=== PATIENT | female | born 2000 | race Caucasian/White ===

== ENCOUNTER 2025-11-05 00:16 | Emergency (ER) | payer OTHER ==
[~2025-11-05] VITALS: Ht 170.2 cm; Wt 49.9 kg
[2025-11-05 00:48] LABS: PLATELET COUNT (AUTO) 166 K/uL (179-408); RED BLOOD CELL COUNT(AUTO) 4.37 MIL/uL (3.63-4.92); RED CELL DISTRIBUTION WIDTH 13.4 % (12.3-17.7); WHITE BLOOD COUNT (AUTO) 6.5 K/uL (3.8-11.8)
[2025-11-05 00:52] LABS: CREATININE 0.9 mg/dL (0.6-1.3); UREA NITROGEN, BLOOD 9.0 mg/dL (7-18)
[2025-11-05 00:55] LABS: SODIUM SERUM 134.0 mmol/L (136-145)
[2025-11-05 00:57] LABS: ASPARTATE AMINOTRANSFERASE 160.0 U/L (15-37); ETHANOL < 3 MG/DL (0-10); TOTAL PROTEIN, SERUM 8.1 g/dL (6.4-8.2)
[2025-11-05] MEDS ORDERED: LEVE500T9 PO (01:21)
[2025-11-05 01:43] VITALS: BP 120/90
[2025-11-05 01:43] LABS: *AMPHETAMINE, URINE NEGATIVE (NEGATIVE); *BARBITURATE, URINE NEGATIVE (NEGATIVE); *BENZODIAZEPINE, URINE NEGATIVE (NEGATIVE); *CANNABINOID, URINE POSITIVE (NEGATIVE); *COCCAINE, URINE NEGATIVE (NEGATIVE); *OPIATE, URINE NEGATIVE (NEGATIVE); *PHENCYCLIDINE SCREEN,URINE NEGATIVE (NEGATIVE); FENTANYL, URINE NEGATIVE (NEGATIVE)
[2025-11-05 02:45] VITALS: BP 120/90; TEMP 97.9; O2SAT 97
== END 2025-11-05 02:45 | disposition home or self-care (01) ==
LOC: ER 00:23
DX: R56.9 Unspecified convulsions (principal); Z79.899 Other long term (current) drug therapy; R10.20 Pelvic and perineal pain unspecified side
CPT/HCPCS: 80076; 80048; 85025; 84702; 36415; 71045; 70450; 93005; 99285; 96365; 80320; 80307; J1953 ×2; A4606; A4663; G0480